=== PATIENT | male | born 1955 | race Caucasian/White ===

== ENCOUNTER 2018-05-11 13:15 | Emergency (ER) | payer MEDICARE ==
[~2018-05-11 13:15] MED LIST: Sodium Chloride 0.9% 1,000 ML BAG ONE; Sodium Chloride 0.9% 100 ML BAG ONE
[2018-05-11] MEDS ORDERED: Piperacillin/Tazobactam 3.375 GM VIAL ONE (13:57)
--- NOTE | 2018-05-11 14:16 | RAD ---
PORTABLE CHEST: DATE: 05/11/2018. PROVIDED CLINICAL HISTORY: Cough. FINDINGS: Comparison is made with the study dated 07/06/2017. Interval development of prominent somewhat mass-li ke opacity in the left hemithorax about the left hilum. There is shift of the mediastinal contents l eftward implying left hemithoracic volume loss. There is asymmetric left apical opacity and prominen ce of the interstitium of the left lung. There is left basilar pleural and/or parenchymal opacity. Nodular densities involving the right lung base may be present. There is no evidence for pneumothora x. 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 Correlation with chest CT is recommended. POS: MARGO
[2018-05-11 14:28] LABS: Band 2 % (5-11); Hemoglobin 13.1 g/dL (14.0-18.0); Lymphocytes 1 % (21-51); MDiff Complete? YES; Mean Corpuscular HGB CONC 32.3 g/dL (32.0-36.0); Mean Corpuscular Hemoglobin 31.1 pg (27.0-31.0); Mean Corpuscular Volume 96.3 fL (78.0-98.0); Mean Platelet Volume 6.2 fL (7.4-10.4); Metamyelocyte 1 % (0-0); Monocytes 2 % (0-10); Neutrophil 90 % (42-75); PLT Morphology Comment Appears Adequate; Platelet Count 387 thou/uL (130-400); RBC Distribution Width 12.2 % (11.5-14.5); Reactive Lymphocytes 4 % (0-10); White Blood Cell (WBC) Count 26.5 thou/uL (4.8-10.8)
[2018-05-11 14:30] LABS: ALT (SGPT) 8 U/L (8-55); AST (SGOT) 17 U/L (5-34); Albumin 2.8 g/dL (3.4-4.8); Alkaline Phosphatase 94 U/L (40-150); Anion Gap 15 mmol/L (10-20); BUN (Urea Nitrogen) 11 mg/dL (8.4-25.7); Bilirubin, Total 0.4 mg/dL (0.2-1.2); Calc. Creatinine Clearance 0 mL/min (70-130); Calcium 9.1 mg/dL (7.8-10.44); Carbon Dioxide 30 mmol/L (23-31); Chloride 92 mmol/L (98-107); Estimated GFR-MDRD Greater than 90; Globulin 3.7 g/dL (2.4-3.5); Glucose 134 mg/dL (80-115); Potassium 3.5 mmol/L (3.5-5.1); Protein, Total 6.5 g/dL (5.8-8.1); Sodium 133 mmol/L (136-145)
[2018-05-11] MEDS ORDERED: Fentanyl 100 MCG/2 ML VIAL ONE (14:44)
[2018-05-11] MEDS ORDERED: Midazolam HCl 10 mg/2 ml Vial ONE (14:44)
[2018-05-11 15:01] LABS: Bilirubin Small (Negative); Blood, Urine Small (Negative); Clarity Clear (Clear); Glucose, Urine (Dipstick) 100 mg/dL (Negative); Leukocyte Negative (Negative); Nitrite Negative (Negative); Protein, Urine (Dipstick) 30 mg/dL (Neg-Trace); Specific Gravity, Urine 1.015 (1.005-1.030)
--- NOTE | 2018-05-11 15:01 | RAD ---
PORTABLE CHEST: DATE: 05/11/2018. PROVIDED CLINICAL HISTORY: Post intubation. FINDINGS: Interval placement of endotracheal tube, the tip of which projects in the region of the thoracic inle t. Interval placement of enteric catheter, with the proximal sidehole lucency projecting over the ex pected location of the distal esophagus. Additional significant interval change with respect to the prior study is not apparent. IMPRESSION: Enteric catheter and endotracheal tube positioning as above. Recommend advancement of the enteric ca theter. POS: MARGO
[2018-05-11 15:03] LABS: RBC/HPF 0-3 HPF (0-3); Squamous Epithelial 0-3 HPF (0-3); WBC/HPF None Seen HPF (0-3)
[2018-05-11 15:04] LABS: Bacteria/HPF Rare-Few HPF (None Seen); Crystals/HPF 2+ AMORPH URATES HPF (Negative); Other Casts/LPF 7-10 MIXED CASTS LPF (0-3 Hyaline)
== END 2018-05-11 15:29 | disposition short-term general hospital (02) ==
LOC: MADERS 13:15
DX: A41.9 Sepsis, unspecified organism (principal); J18.1 Lobar pneumonia, unspecified organism; J96.90 Respiratory failure, unspecified, unspecified whether with hypoxia or hypercapnia; F17.210 Nicotine dependence, cigarettes, uncomplicated
CPT/HCPCS: 31500; 36415; 51701; 71045; 80053; 81003; 81015; 83605; 85025; 87040; 87070; 87077; 87186; 87205; 87804; 96361; 96365; 96368; 96375; J2250; J2543; J3010; J3370; J7050